=== PATIENT | female | born 1985 | race Caucasian/White ===

== ENCOUNTER 2016-08-11 19:56 | Inpatient (IN) | payer OTHER ==
[~2016-08-11] VITALS: Ht 154.9 cm; Wt 53.5 kg
--- NOTE | ~2016-08-11 | HC ---
[facility] [place] [address] CONSULTATION Name: CAT KATZ Room #: 417-I ADM IN ..#: [id number] Admission: 08/11/16 Attend Phys: Ming Casillas MD Discharge: Date of : 87 Report #: [id number] THIS REPORT FOR: //name// CC: RAJENDRA physician/PCP Jhonatan Veronica MD DATE OF SERVICE: 08/12/2016 HISTORY OF PRESENT ILLNESS: The patient is a 30-year-old female with abdominal pain and diarrhea. The patient had a fall approximately 2 weeks ago in which she injured her left wrist. She was started on antibiotics at that time apparently and later was hospitalized because of the wrist was not improving. Apparently, she was hospitalized for 4 days, had a high white count at that time. She has had recent nausea, vomiting and diarrhea over the last few days as well as abdominal pain, which is more right than left. A CT scan of the abdomen and pelvis on admission showed a mild diffuse scattered colonic thickening, suspect colitis, although this could be normal bowel. Also a large thick walled 4.6 cm cystic structure was noted in the right adnexa likely represented no large cyst. The patient is currently on Cipro and Flagyl. She is feeling somewhat better today. She has never had a colonoscopy before. There is no family history of colon cancer or inflammatory bowel disease. PAST MEDICAL HISTORY: Recent right wrist pain, arthralgia, leukocytosis and urinary tract infection. MEDICATIONS ON ADMISSION: Cefuroxime. ALLERGIES: No known drug allergies. SOCIAL HISTORY: She does report daily smoking as well as occasional alcohol use. FAMILY HISTORY: Negative for colon cancer or inflammatory bowel disease. REVIEW OF SYSTEMS: As per HPI. PHYSICAL EXAMINATION: VITAL SIGNS: Temperature is 97.8, pulse 52, blood pressure 105/72 and respiratory rate is 16. GENERAL: She is alert and oriented times 3, in no acute distress. HEENT: Sclerae nonicteric. Oropharynx clear. NECK: Supple. CARDIOVASCULAR: Regular rate and rhythm. CHEST: Clear to auscultation bilaterally. ABDOMEN: Soft. She is mildly tender to palpation in the periumbilical region. [facility] [address] [place] [address] CONSULTATION Name: CAT KATZ Room #: 417-I ADM IN [facility]#: [id number] Admission: 08/11/16 Attend Phys: Ming Casillas MD Discharge: Date of : 87 Report #: [id number] Nondistended. Positive bowel sounds. EXTREMITIES: No cyanosis, clubbing or edema. There is tenderness in her right wrist. LABORATORY DATA: Sodium 140, potassium 3.6, chloride 104, bicarbonate 27, BUN 8 and creatinine 0.6. AST 18, total bilirubin 0.3, alkaline phosphatase 136, ALT is 38, albumin 2.0 and total protein 6.3. RESORT HOST is 168.6. WBC is 19.9, hemoglobin 10.5 and platelet count 242. HCG is negative 7. Sed rate 87. C. diff is pending. ASSESSMENT AND PLAN: Abdominal pain and diarrhea. CT showing evidence of likely colitis, suspect this may be infectious, need to consider the possibility Clostridium difficile as the patient has been on recent antibiotics as well. This has been sent and is pending at this time. If stool studies are negative and no improvement, may need to consider endoscopy at that point. In the meantime, continue current regimen of Cipro and Flagyl. Thank you for allowing me to participate in her care. <ELECTRONICALLY SIGNED> By: Jose Antonio Hernandez MD 08/13/16 1132 [id number] 2030 Jose Antonio Hernandez MD /nt
--- NOTE | ~2016-08-11 | D ---
[facility] [place] [address] DISCHARGE SUMMARY Name: CAT KATZ Room #: 417-I ADM IN M.R.#: [id number] Admission: 08/11/16 Attend Phys: Ming Casillas MD Discharge: Date of : 87 Report #: [id number] THIS REPORT FOR: //name// CC: RAJENDRA physician/PCP Ming Casillas DATE OF SERVICE: 08/15/2016 HISTORY OF PRESENT ILLNESS: The patient is a 30-year-old female who came to the hospital with weakness, bilateral hand swelling, and pain. On admission, she was found to have abdominal pain, and leukocytosis with white cells of 20,000. She also had UTI. Please refer to the admission H and P for details. In brief, the patient was found to have colitis. CT also showed 4.6 cm cystic structure in the adnexa. Urinalysis was consistent with UTI. HOSPITALIZATION COURSE: The patient was hospitalized at [facility]. The patient had been treated outpatient for UTI. Here she was continued with Cipro. Urinalysis shows no growth. Further evaluation revealed stool positive for C. diff. The patient was treated with Flagyl. On Flagyl, her condition improved significantly. White count has normalized from 20,000 to normal. The patient's symptoms improved. She started eating. P.o. intake is improved. Diarrhea has resolved. The patient was seen and evaluated by psychiatry. She was recommended to start on Remeron for depression, and Vistaril . The patient has history of depression, but she has no suicidal ideation. As noted, the patient has bilateral arthritis. Adjunct Phlebotomy Instructor evaluated the patient. Clinical presentation and acutely of the onset is most consistent with reactive arthritis. The patient is started on prednisone. After first dose of the prednisone, she already feels much better. Currently, the patient's condition is acceptable, as documented in the patient's chart. DISCHARGE DIAGNOSES: 1. Clostridium difficile colitis, first episode. Treated with Flagyl. Clinically much better. 2. Urinary tract infection. The patient started treatment as an outpatient, and received 3 days of the Cipro. Repeat urinalysis showed no culture. 3. Reactive arthritis, and , much better on prednisone. 4. Depression, no suicidal ideations. Stable. DISCHARGE MEDICATIONS: Please refer to the medication reconciliation list. [address] [address] DISCHARGE SUMMARY Name: CAT KATZ Room #: 417-I ADM IN M.R.#: [id number] Admission: 08/11/16 Attend Phys: Ming Casillas MD Discharge: Date of : 87 Report #: [id number] FOLLOWUP PLAN: 1. Follow up with communications attendant in 2 weeks. 2. Follow with psychiatrist as advised. 3. Follow up with primary care physician in 1-2 weeks. I spent greater than 30 minutes to coordinate the patient's discharge from the hospital. By: 1533 1710 Ming Csaillas MD /nt
[2016-08-11 19:58] VITALS: BP 113/77
[2016-08-11] MEDS ORDERED: CEFUROXIME500 MG PO (20:20)
[2016-08-11] MEDS ORDERED: ZYDONE PO (20:22)
[2016-08-11 20:48] LABS: HEMOGLOBIN 11.5 gm/dL (12.0-15.0); MCH 28.4 pg (26.0-34.0); MCHC 33.8 g/dL (28.0-37.0); MCV 84.2 fL (80.0-100.0); PLATELET COUNT 263 thou/uL (150-400); RBC 4.03 mil/uL (4.20-5.00); RDW 13.1 % (10.5-14.5); WBC 20.8 thou/uL (4.0-11.0)
[2016-08-11 20:51] LABS: URINE BLOOD TRACE (Negative); URINE COLOR YELLOW; URINE GLUCOSE-RANDOM* NEGATIVE (Negative); URINE KETONES TRACE (Negative); URINE NITRITE NEGATIVE (Negative); URINE PROTEIN (DIPSTICK) TRACE (Negative); URINE SPECIFIC GRAVITY >= 1.030 (1.003-1.035); URINE UROBILINOGEN 0.2 E.U./dl (0.2-1.0)
[2016-08-11 20:51] LABS: MANUAL DIFF YES
[2016-08-11 20:54] LABS: ICTOTEST (BILI CONFIRMATORY) Negative (Negative); URINE BILIRUBIN NEGATIVE (Negative)
[2016-08-11 20:57] LABS: ALBUMIN 2.3 g/dL (3.4-5.0); ALKALINE PHOSPHATASE 154 U/L (46-116); ANION GAP 7 mmol/L (7-16); BUN 10 mg/dL (7-18); CALCIUM 8.8 mg/dL (8.5-10.1); CHLORIDE 100 mmol/L (98-107); CO2 28 mmol/L (21-32); CREATININE 0.7 mg/dL (0.6-1.0); DIRECT BILIRUBIN < 0.1 mg/dL (<0.1-0.3); GLUCOSE 118 mg/dL (74-106); POTASSIUM 3.7 mmol/L (3.5-5.1); SGOT 31 U/L (15-37); SGPT 46 U/L (30-65); SODIUM 135 mmol/L (136-145); TOTAL BILIRUBIN 0.4 mg/dL (<0.1-1.0); TOTAL PROTEIN 7.1 g/dL (6.4-8.2)
[2016-08-11 21:03] LABS: SQUAMOUS 4-10 Moderate /LPF (0-3)
[2016-08-11 21:04] LABS: CASTS None Seen /LPF (None Seen); URINE WBC >25 Many /HPF (0-5)
[2016-08-11 21:05] LABS: BACTERIA 1-9 Few /HPF (None Seen); CRYSTALS None Seen /LPF (None Seen); URINE RBC 0-2 Rare /HPF (0-2)
[2016-08-11 21:35] LABS: ABSOLUTE NEUTROPHILS 17.7 thou/uL (1.4-8.2); TOTAL CELL COUNT 100
[2016-08-11 23:23] VITALS: BP 109/55
[2016-08-12 00:07] VITALS: BP 110/70
[2016-08-12 03:30] LABS: HEMATOCRIT 31.2 % (37.0-47.0); HEMOGLOBIN 10.5 gm/dL (12.0-15.0); MCH 28.6 pg (26.0-34.0); MCHC 33.5 g/dL (28.0-37.0); MCV 85.2 fL (80.0-100.0); RBC 3.66 mil/uL (4.20-5.00); WBC 19.9 thou/uL (4.0-11.0)
[2016-08-12 03:43] LABS: CALCIUM 8.2 mg/dL (8.5-10.1); CREATININE 0.6 mg/dL (0.6-1.0); POTASSIUM 3.6 mmol/L (3.5-5.1); TOTAL BILIRUBIN 0.3 mg/dL (<0.1-1.0); TOTAL PROTEIN 6.3 g/dL (6.4-8.2)
[2016-08-12 04:30] VITALS: BP 113/72
[2016-08-12 07:32] VITALS: BP 105/72
[2016-08-12 16:04] VITALS: BP 124/78
[2016-08-12 19:17] VITALS: BP 110/67
[2016-08-13 05:02] VITALS: BP 113/85
[2016-08-13 05:22] LABS: ABSOLUTE NEUTROPHILS 9.7 thou/uL (1.4-8.2); BASOPHILS 0.2 % (0.0-2.0); EOSINOPHILS 1.5 % (0.0-3.0); HEMATOCRIT 31.8 % (37.0-47.0); HEMOGLOBIN 10.7 gm/dL (12.0-15.0); LYMPHOCYTES 15.2 % (24.0-44.0); MCH 28.6 pg (26.0-34.0); MCHC 33.5 g/dL (28.0-37.0); MCV 85.4 fL (80.0-100.0); MONOCYTES 8.3 % (1.0-8.0); PLATELET COUNT 223 thou/uL (150-400); POLYS 74.8 % (36.0-66.0); RBC 3.72 mil/uL (4.20-5.00); RDW 13.1 % (10.5-14.5)
[2016-08-13 05:30] LABS: CALCIUM 8.1 mg/dL (8.5-10.1); CREATININE 0.7 mg/dL (0.6-1.0); POTASSIUM 3.3 mmol/L (3.5-5.1)
[2016-08-13 05:31] LABS: MANUAL DIFF NO
[2016-08-13 07:31] VITALS: BP 109/77
[2016-08-13 16:05] VITALS: BP 103/66
[2016-08-13 21:53] VITALS: BP 99/68
[2016-08-14 03:55] VITALS: BP 87/59
[2016-08-14 05:36] LABS: ABSOLUTE NEUTROPHILS 6.5 thou/uL (1.4-8.2); BASOPHILS 0.5 % (0.0-2.0); EOSINOPHILS 2.9 % (0.0-3.0); HEMATOCRIT 33.3 % (37.0-47.0); HEMOGLOBIN 11.1 gm/dL (12.0-15.0); LYMPHOCYTES 27.5 % (24.0-44.0); MCH 28.2 pg (26.0-34.0); MCHC 33.4 g/dL (28.0-37.0); MCV 84.3 fL (80.0-100.0); MONOCYTES 9.8 % (1.0-8.0); PLATELET COUNT 245 thou/uL (150-400); POLYS 59.3 % (36.0-66.0); RBC 3.96 mil/uL (4.20-5.00); RDW 13.4 % (10.5-14.5); WBC 11.1 thou/uL (4.0-11.0)
[2016-08-14 05:41] LABS: MANUAL DIFF NO
[2016-08-14 05:42] LABS: CALCIUM 8.6 mg/dL (8.5-10.1); CREATININE 0.7 mg/dL (0.6-1.0); POTASSIUM 4.1 mmol/L (3.5-5.1)
[2016-08-14 06:00] VITALS: BP 110/60
[2016-08-14 07:44] VITALS: BP 100/71
[2016-08-14 12:15] VITALS: BP 93/52
[2016-08-14 15:53] VITALS: BP 100/61
[2016-08-14 16:30] LABS: URINE BILIRUBIN NEGATIVE (Negative); URINE BLOOD TRACE (Negative); URINE GLUCOSE-RANDOM* NEGATIVE (Negative); URINE KETONES NEGATIVE (Negative); URINE LEUKOCYTES-REFLEX 2+ (Negative); URINE PROTEIN (DIPSTICK) TRACE (Negative); URINE SPECIFIC GRAVITY 1.025 (1.003-1.035); URINE UROBILINOGEN 0.2 E.U./dl (0.2-1.0)
[2016-08-14 16:36] LABS: URINE COLOR BROWNISH
[2016-08-14 16:37] LABS: SQUAMOUS 0-3 Few /LPF (0-3); URINE RBC 0-2 Rare /HPF (0-2); URINE WBC-REFLEX >25 Many /HPF (0-5)
[2016-08-14 16:38] LABS: CALCIUM OXALATE >10 Many /LPF (None Seen); CASTS None Seen /LPF (None Seen)
[2016-08-14 21:10] VITALS: BP 103/66
[2016-08-15 00:10] VITALS: BP 99/53
[2016-08-15 05:33] VITALS: BP 83/48
[2016-08-15 07:48] VITALS: BP 108/60
[2016-08-15 14:45] VITALS: BP 97/50
[2016-08-15 15:26] VITALS: BP 97/60
[2016-08-15] MEDS ORDERED: FLAGYL500 M1 PO (15:37)
[2016-08-15] MEDS ORDERED: PREDNISONE 20 M20 M1 PO (15:37)
[2016-08-15] MEDS ORDERED: ONDANSETRON HCL4 M2 PO (15:37)
[2016-08-15] MEDS ORDERED: REMERON15 MG PO (15:37)
[2016-08-15] MEDS ORDERED: VISTARIL 25 MG25 M1 PO (15:37)
[2016-08-15] MEDS ORDERED: HYDROCODON-ACE1 EAC7 PO (15:37)
[2016-08-15 16:29] VITALS: BP 97/60
== END 2016-08-15 17:13 | disposition home or self-care (01) | DRG 372 ==
LOC: ER 19:56 → 4E 22:57 → EROBS 22:57 → 4E 23:30
PROVIDERS: Internal Medicine Endocrinology, Diabetes & Metabolism; Nurse Practitioner
DX: A04.7 Enterocolitis due to Clostridium difficile (principal); N39.0 Urinary tract infection, site not specified; M02.342 Reiter's disease, left hand; M02.341 Reiter's disease, right hand; F33.9 Major depressive disorder, recurrent, unspecified; F12.90 Cannabis use, unspecified, uncomplicated; F17.210 Nicotine dependence, cigarettes, uncomplicated; D72.829 Elevated white blood cell count, unspecified; F41.9 Anxiety disorder, unspecified; E87.6 Hypokalemia; Z79.899 Other long term (current) drug therapy; Z87.440 Personal history of urinary (tract) infections
CPT/HCPCS: 10084

== ENCOUNTER 2016-09-12 16:51 | Emergency (ER) | payer OTHER ==
[~2016-09-12] VITALS: Ht 154.9 cm; Wt 52.2 kg
[~2016-09-12 16:51] MED LIST: CEFUROXIME500 MG PO; FLAGYL500 M1 PO; HYDROCODON-ACE1 EAC7 PO; ONDANSETRON HCL4 M2 PO; PREDNISONE 20 M20 M1 PO; REMERON15 MG PO; VISTARIL 25 MG25 M1 PO; ZYDONE PO
[2016-09-12 17:37] LABS: ABSOLUTE NEUTROPHILS 8.6 thou/uL (1.4-8.2); BASOPHILS 1.3 % (0.0-2.0); HEMATOCRIT 34.5 % (37.0-47.0); HEMOGLOBIN 11.5 gm/dL (12.0-15.0); LYMPHOCYTES 22.8 % (24.0-44.0); MANUAL DIFF NO; MCH 27.7 pg (26.0-34.0); MCHC 33.4 g/dL (28.0-37.0); MONOCYTES 7.1 % (1.0-8.0); PLATELET COUNT 275 thou/uL (150-400); POLYS 66.8 % (36.0-66.0); RBC 4.16 mil/uL (4.20-5.00); RDW 14.3 % (10.5-14.5); WBC 12.8 thou/uL (4.0-11.0)
[2016-09-12 17:47] LABS: CALCIUM 8.5 mg/dL (8.5-10.1); CREATININE 0.8 mg/dL (0.6-1.0); POTASSIUM 3.2 mmol/L (3.5-5.1)
[2016-09-12 17:49] LABS: URINE BILIRUBIN NEGATIVE (Negative); URINE BLOOD NEGATIVE (Negative); URINE COLOR YELLOW; URINE GLUCOSE-RANDOM* NEGATIVE (Negative); URINE KETONES NEGATIVE (Negative); URINE LEUKOCYTES-REFLEX TRACE (Negative); URINE PROTEIN (DIPSTICK) TRACE (Negative); URINE SPECIFIC GRAVITY >= 1.030 (1.003-1.035); URINE UROBILINOGEN 0.2 E.U./dl (0.2-1.0)
[2016-09-12 17:50] LABS: ALBUMIN 2.2 g/dL (3.4-5.0); TOTAL BILIRUBIN 0.2 mg/dL (<0.1-1.0); TOTAL PROTEIN 7.5 g/dL (6.4-8.2)
[2016-09-12] MEDS ORDERED: FLAGYL500 MG PO (19:16)
== END 2016-09-12 19:57 | disposition home or self-care (01) ==
LOC: ER 16:51
PROVIDERS: Emergency Medicine
DX: K52.9 Noninfective gastroenteritis and colitis, unspecified (principal); F32.9 Major depressive disorder, single episode, unspecified; F41.9 Anxiety disorder, unspecified; F17.210 Nicotine dependence, cigarettes, uncomplicated; F10.99 Alcohol use, unspecified with unspecified alcohol-induced disorder; F12.10 Cannabis abuse, uncomplicated